=== PATIENT | female | born 1975 | race African-American/Black ===

== ENCOUNTER 2019-10-25 19:56 | Emergency (ER) | payer MEDICAID ==
[~2019-10-25] VITALS: Ht 170.2 cm; Wt 95.0 kg
[~2019-10-25 19:56] MED LIST: HYDR12.54 PO; KEPP500 PO
[2019-10-25 21:37] VITALS: BP 133/87
== END 2019-10-25 21:37 | disposition home or self-care (01) ==
LOC: ER 19:56
DX: T25.022A Burn of unspecified degree of left foot, initial encounter (principal); X08.8XXA Exposure to other specified smoke, fire and flames, initial encounter; Y93.89 Activity, other specified; Y92.89 Other specified places as the place of occurrence of the external cause; Y99.8 Other external cause status; I10 Essential (primary) hypertension; Z86.73 Personal history of transient ischemic attack (TIA), and cerebral infarction without residual deficits; F12.10 Cannabis abuse, uncomplicated; Z79.899 Other long term (current) drug therapy; Z88.2 Allergy status to sulfonamides; Z88.8 Allergy status to other drugs, medicaments and biological substances
CPT/HCPCS: 99284